=== PATIENT | male | born 1985 | race Caucasian/White ===

== ENCOUNTER 2020-03-24 01:02 | Emergency (ER) | payer OTHER ==
[~2020-03-24] VITALS: Ht 185.4 cm; Wt 86.2 kg
--- NOTE | 2020-03-24 01:10 | NUR ---
bibra c/o etoh and s/i, gf reports him saying he wants to jump off [address]. denies s/i h/i, hx of s/i.
--- NOTE | 2020-03-24 01:15 | NUR ---
PT PLACED IN GOWN. BELONGINGS PLACED IN LOCKER!
[2020-03-24 01:21] LABS: BASOPHILS % (AUTO) 0.4 % (0.0-2.0); EOSINOPHILS % (AUTO) 1.1 % (0.0-6.0); HEMATOCRIT 44 % (39-51); HEMOGLOBIN 14.9 g/dL (13.5-17.5); LYMPHOCYTES # (AUTO) 2.8 /CMM (0.8-4.8); LYMPHOCYTES % (AUTO) 38.7 % (20.0-44.0); MEAN CORPUSCULAR HGB CONC 34 g/dl (31.0-36.0); MEAN CORPUSCULAR VOLUME 89 fL (80-96); MONOCYTES # (AUTO) 0.4 /CMM (0.1-1.30); MONOCYTES % (AUTO) 5.2 % (2.0-12.0); NEUTROPHILS % (AUTO) 54.6 % (43.0-81.0); PLATELET COUNT (AUTO) 236 /CMM (150-450); RED BLOOD CELL COUNT(AUTO) 4.92 MIL/uL (4.5-6.0); WHITE BLOOD COUNT (AUTO) 7.3 K/uL (4.3-11.0)
[2020-03-24 01:28] LABS: CALCIUM, SERUM 8.6 mg/dL (8.5-10.1); CREATININE 1.1 mg/dL (0.6-1.3); POTASSIUM 3.7 mmol/L (3.5-5.1)
[2020-03-24] MEDS ORDERED: NEOMY SULF/BACITRAC ZN/POLY 15 GM TUBE TP SCH (01:30)
[2020-03-24] MEDS ORDERED: TDAP [DIPH/PERTUSSIS/TET] 0.5 ML VIAL IM ONE ×2 (01:30→01:55)
[2020-03-24 01:33] LABS: ALBUMIN 4.7 g/dL (3.4-5.0); BILIRUBIN,DIRECT 0.1 mg/dL (0.0-0.2); BILIRUBIN,TOTAL 0.2 mg/dL (0.2-1.0)
[2020-03-24 01:34] LABS: SALICYLATE 1.4 mg/dL (2.8-20.0)
[2020-03-24 02:25] LABS: APPEARANCE,URINE CLEAR (CLEAR); BILIRUBIN,URINE NEGATIVE (NEGATIVE); BLOOD, URINE NEGATIVE Ery/uL (NEGATIVE); COLOR,URINE YELLOW (YELLOW); KETONES,URINE NEGATIVE (NEGATIVE); LEUKOCYTE ESTERASE ,URINE NEGATIVE (NEGATIVE); NITRITE, URINE NEGATIVE (NEGATIVE); PROTEIN,URINE NEGATIVE (NEGATIVE); UGLUCOSE NEGATIVE (NEGATIVE); UROBILINOGEN,URINE 0.2 EU/dL (0.2)
--- NOTE | 2020-03-24 05:00 | NUR ---
Latanya Carmona - Sister [phone]
--- NOTE | 2020-03-24 06:06 | NUR ---
Farhan Cabrera - Father [phone] Lois Cabrera - Mother [phone]
--- NOTE | 2020-03-24 06:22 | NUR ---
PATIENT IS AWAKE AND RESTING. BREATHING EVENLY AND UNLABORED ON ROOM AIR. CONNECTED TO MONITOR. SITTER AT BEDSIDE.
--- NOTE | 2020-03-24 10:07 | NUR ---
AYAZ NOTE: Pt is a 34 year old male BI from home by girlfriend after pt drank a bottle of whiskey and was making suicidal statements of wanting to jump off his balcony. Per MD notes, pt has a history of cutting and burning himself and stated he burned his leg with a hot knife yesterday. AYAZ met with pt at bedside, on approach pt appears depressed with flat affect. Pt states that he cuts and meadows himself but does not want to kill himself and states he wants to go home. AYAZ offered to refer pt to [facility] and pt refused. Pt denied visual/auditory hallucinations and denied suicidal/homicidal ideation. AYAZ provided pt with behavioral health and substance abuse referrals. AYAZ informed RN and pt will be discharged home.
--- NOTE | 2020-03-24 10:45 | NUR ---
seen by dr. de oliveira and pt agreed to get admitted voluntarily to psych facility.
--- NOTE | 2020-03-24 10:59 | NUR ---
AYAZ NOTE: AYAZ received a call from RN stating that MD has requested pt be referred to [facility]. SW met with pt at bedside stating that he does not feel comfortable going home and wishes for voluntary psych placement. AYAZ faxed referral to Fahad, project coordinator rn . Per Fahad, there is a bed available for pt and is waiting for clinical review.
--- NOTE | 2020-03-24 11:00 | NUR ---
mitchell loyd) at bedside talking to pt.
--- NOTE | 2020-03-24 11:28 | NUR ---
AYAZ NOTE: AYAZ and met with pt at bedside, pt is depressed with suicidal ideation with plan to hurt himself by burning and cutting himself if he is discharged home. Pt states he will self harm if not helped. Addendum: 03/24/20 at 1217 by YOLY JACOME Pt reported that he does not want to kill himself but does wish to self harm via cutting and burning.
--- NOTE | 2020-03-24 12:00 | NUR ---
offered lunch, pt refused. pending transfer to [facility] facility as voluntary.
--- NOTE | 2020-03-24 12:18 | NUR ---
SW received a call from Christy health and wellness coordinator at [facility] stating that pt cannot be accepted due to no insurance coverage.
--- NOTE | 2020-03-24 12:19 | NUR ---
CRISIS NOTE: AYAZ contacted Maryam, non destructive tester for psych evaluation and possible clearance.
--- NOTE | 2020-03-24 13:25 | NUR ---
analytical laboratory technician at bedside for blood alcohol draw.
--- NOTE | 2020-03-24 14:00 | NUR ---
clive (crisis team clinician) at bedside for eval.
--- NOTE | 2020-03-24 14:20 | NUR ---
DESI MALCOLMW, STATED THAT THE PT IS NOT SUICIDAL AND IS OK FOR DISCHARGE. DR SAMUELS NOTIFIED. CHARGE NURSE NOTIFIED.
--- NOTE | 2020-03-24 14:32 | NUR ---
SPOKE WITH MOTHER AND FATHER OF PT. WILL TRY TO CONTACT RAMILA, PTS SIGNIFICANT OTHER TO PICK HER UP. CALLED RAMILA AND NO ANSWER.
--- NOTE | 2020-03-24 14:47 | NUR ---
SPOKE TO PTS GIRLFRIEND AND SHE WILL BE PICKING HIM UP IN ABOUT 10-20 MINUTES.
--- NOTE | 2020-03-24 15:13 | NUR ---
SPOKE TO FAMILY MEMBER AND EXPLAINED THAT THE PT WOULD BE RELEASED SHORTLY.
--- NOTE | 2020-03-24 15:35 | NUR ---
Patient discharged to home in stable condition. Written and verbal after care instructions given. Patient verbalizes understanding of instruction. PT TO F/U WITH ADDICTION CLINIC. VSS. NAD NOTED. PT AMBULATED TO THE LOBBY WITH A STEADY GAIT. PT'S GIRLFRIEND IS IN THE LOBBY AND IS DRIVING PT HOME.
[2020-03-24 15:43] VITALS: BP 128/84
== END 2020-03-24 15:25 | disposition home or self-care (01) ==
LOC: ER 01:03
DX: R45.851 Suicidal ideations (principal); F10.129 Alcohol abuse with intoxication, unspecified; T24.102A Burn of first degree of unspecified site of left lower limb, except ankle and foot, initial encounter; F32.9 Major depressive disorder, single episode, unspecified; X19.XXXA Contact with other heat and hot substances, initial encounter; Y93.89 Activity, other specified; Y92.89 Other specified places as the place of occurrence of the external cause; Y99.8 Other external cause status; Y90.8 Blood alcohol level of 240 mg/100 ml or more
CPT/HCPCS: 16020; 36415; 71045; 80048; 80076; 80305; 80307 ×3; 80329; 81001; 85025; 90471; 90715; 99284; G0480; 81000-TC

== ENCOUNTER 2020-08-03 23:55 | Emergency (ER) | payer OTHER ==
[~2020-08-03] VITALS: Ht 185.4 cm; Wt 91.2 kg
--- NOTE | 2020-08-04 | NUR ---
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 vss, nad noted. pending er provider lesly
--- NOTE | 2020-08-04 00:06 | NUR ---
PT ARRIVED TO [facility] WITH EMPTY BOTTLES OF: SERTRALINE HCL 100MG. QTY: 30, DATE FILLED: 06/03/2020 SERTRALINE HCL 50MG. QTY: 30, DATE FILLED: 07/08/2020 SERTRALINE HCL 25MG. QTY: 90, DATE FILLED: 04/28/2020 LAMOTRIGINE 100MG. QTY: 30, DATE FILLED: 07/08/2020 LAMOTRIGINE 25MG. QTY: 90, DATE FILLED: 06/18/2020 PT STATES HE TOOK "24 PILLS OF ZOLOFT AND 10 PILLS OF LAMICTAL" UNK DOSE
--- NOTE | 2020-08-04 00:12 | NUR ---
SPOKE WITH MADDIE FROM POISON CONTROL. RECOMMENDATIONS: CHARCOAL 50G EVENT REPRESENTATIVE SEIZURE PRECAUTIONS EKG, DRUG SCREEN, CHEM, MAGNESIUM MONITOR FOR [address] EARLY MADE AWARE
[2020-08-04] MEDS ORDERED: ACTIVATED CHARCOAL 25 GM/120 ML TUBE ONE ×2 (00:20→00:38)
[2020-08-04 00:22] LABS: BASOPHILS % (AUTO) 0.2 % (0.0-2.0); EOSINOPHILS % (AUTO) 1.7 % (0.0-6.0); HEMATOCRIT 44 % (39-51); LYMPHOCYTES # (AUTO) 3.1 /CMM (0.8-4.8); LYMPHOCYTES % (AUTO) 45.9 % (20.0-44.0); MEAN CORPUSCULAR HGB CONC 35 g/dl (31.0-36.0); MEAN CORPUSCULAR VOLUME 88 fL (80-96); MONOCYTES # (AUTO) 0.4 /CMM (0.1-1.30); MONOCYTES % (AUTO) 6.4 % (2.0-12.0); NEUTROPHILS # (AUTO) 3.1 /CMM (1.8-8.9); NEUTROPHILS % (AUTO) 45.8 % (43.0-81.0); PLATELET COUNT (AUTO) 242 /CMM (150-450); RED BLOOD CELL COUNT(AUTO) 4.92 MIL/uL (4.5-6.0); WHITE BLOOD COUNT (AUTO) 6.7 K/uL (4.3-11.0)
--- NOTE | 2020-08-04 00:23 | NUR ---
SPOKE WITH GIRLFRIEND, AMBER, PATIENT OKAY'D TO SPEAK WITH HER. LEFT PHONE NUMBER [phone].
--- NOTE | 2020-08-04 00:25 | NUR ---
PERSONAL THERAPIST IS ON STANDBY, .
[2020-08-04] MEDS ORDERED: IV NS 0.9% 1,000 ML BAG IV ONE (00:30)
[2020-08-04] MEDS ORDERED: ACTIVATED CHARCOAL 25 GM/120 ML TUBE PO ONE (00:30)
[2020-08-04] MEDS ORDERED: ONDANSETRON HCL/PF 4 MG/2 ML VIAL IVP ONE (00:30)
[2020-08-04] MEDS ORDERED: ONDANSETRON HCL/PF 4 MG/2 ML VIAL ONE (00:34)
[2020-08-04 00:56] LABS: ALANINE AMINOTRANSFERASE 26 U/L (12-78); ALBUMIN 4.8 g/dL (3.4-5.0); ALCOHOL, BLOOD 245 mg/dL (0-0); ALKALINE PHOSPHATASE 74 U/L (46-116); ASPARTATE AMINOTRANSFERASE 20 U/L (15-37); BILIRUBIN,DIRECT 0.1 mg/dL (0.0-0.2); BILIRUBIN,TOTAL 0.3 mg/dL (0.2-1.0); CARBON DIOXIDE 25 mmol/L (21-32); CHLORIDE 107 mmol/L (98-107); CREATININE 1.1 mg/dL (0.6-1.3); GLUCOSE 100 mg/dL (74-106); POTASSIUM 3.8 mmol/L (3.5-5.1); SODIUM SERUM 145 mmol/L (136-145); TOTAL PROTEIN, SERUM 8.4 g/dL (6.4-8.2); UREA NITROGEN, BLOOD 14 mg/dL (7-18)
--- NOTE | 2020-08-04 00:59 | NUR ---
PT UNABLE TO TOLERATE PO CHARCOAL. PER DR EARLY. START NGT THEN DC
[2020-08-04 01:00] LABS: ACETAMINOPHEN < 2 ug/ml (10-30); SALICYLATE 1.1 mg/dL (2.8-20.0)
--- NOTE | 2020-08-04 01:00 | NUR ---
NGT 14FR PLACED, VERIFIED PLACEMENT WITH 2ND RN; CHARCOAL ADMINISTRED VIA NGT. TOLERATED. REMOVED NGT PER ORDER
--- NOTE | 2020-08-04 01:09 | NUR ---
[employer] AT BEDSIDE
--- NOTE | 2020-08-04 02:00 | NUR ---
PER POISON CONTOL RE-EVAL IN 6HRS. PT VSS. ON MONITOR. SITTER BY BEDSIDE. NAD.
--- NOTE | 2020-08-04 03:00 | NUR ---
VITAL SIGNS UPDATED. Patient is resting comfortably in bed with eyes closed. Easily aroused. VSS
[2020-08-04 05:12] LABS: APPEARANCE,URINE CLEAR (CLEAR); BILIRUBIN,URINE NEGATIVE (NEGATIVE); BLOOD, URINE NEGATIVE Ery/uL (NEGATIVE); KETONES,URINE NEGATIVE (NEGATIVE); LEUKOCYTE ESTERASE ,URINE NEGATIVE (NEGATIVE); NITRITE, URINE NEGATIVE (NEGATIVE); PROTEIN,URINE NEGATIVE (NEGATIVE); UGLUCOSE NEGATIVE (NEGATIVE); UROBILINOGEN,URINE 0.2 EU/dL (0.2)
[2020-08-04 05:37] LABS: COLOR,URINE YELLOW (YELLOW)
--- NOTE | 2020-08-04 06:10 | NUR ---
Patient is resting comfortably in bed with eyes closed. Easily aroused. VSS
--- NOTE | 2020-08-04 07:09 | NUR ---
REPORT GIVEN TO DULCE MARIA ELDRIDGE FOR JESSEE
--- NOTE | 2020-08-04 08:01 | NUR ---
PATIENT AWAKE, ALERT AND ORIENTED, NO DISTRESS NOTED. NEEDS ATTENDED.
--- NOTE | 2020-08-04 08:20 | NUR ---
PER YOLY, CLOSING CASE FROM POISON CONTROL. PATIENT IS STABLE.
--- NOTE | 2020-08-04 08:46 | NUR ---
ORDERED BREAKFAST FOOD TRAY.
--- NOTE | 2020-08-04 09:14 | NUR ---
CALLED ART CRISIS FOR EVAL.
--- NOTE | 2020-08-04 10:07 | NUR ---
NAZARIO AT BEDSIDE FOR EVAL.
[2020-08-04] MEDS ORDERED: LAMO25TA10 PO (10:37)
[2020-08-04] MEDS ORDERED: SERT25TA PO (10:37)
--- NOTE | 2020-08-04 13:04 | NUR ---
PATIENT EVALUATED BY ART FROM CRISIS.
--- NOTE | 2020-08-04 13:24 | NUR ---
PATIENT A/OX4, BREATHING EVEN AND UNLABORED, NO SOB NOTED, NEEDS ATTENDED, KEPT COMFORTABLE. GIRLFRIEND WENT HOME TO GET CLOTHES FOR THE PATIENT.
[2020-08-04 13:59] VITALS: BP 126/71
--- NOTE | 2020-08-04 13:59 | NUR ---
Patient discharged to home in stable condition. Written and verbal after care instructions given. Patient verbalizes understanding of instruction.
--- NOTE | 2020-08-04 14:02 | NUR ---
This SW met the patient at bedside. Patient is a 34-year-old male, alert and oriented x4. Patient was receptive to speaking with this SW. Per MD note, patient presented to [facility] ER because patient overdosed on medications. Per MD note, patient is unsure if he was trying to hill himself. Patient confirmed date of , social security number, and current address. Per patient, he is currently working from home but did not want to report his current job. Patient admits taking many pills that were at bedside. Per patient, he has had a history of depression. Patient reports speaking with a therapist once a week, speaking with a psychiatrist approximately once a month, and reports last self-injury cut on the wrist approximately 6 weeks ago. Per patient, therapist and psychiatrist are relatively new but have been helping him slowly but surely. Per patient, he also consumes alcohol. Per patient, it varies a night, patient reports drinking anything from one drink a night to several drinks a night depending on my mood. Patient reports suicidal ideation stating, It is always on my mind, has been for a long time now. Per patient, his last psychiatric hospitalization was in 2012, and patient reports It is a lot to return to that space. Per patient, would like to sit on it and speak with his therapist, psychiatrist and family. Patient will likely require behavior clinician if patient refuses voluntary treatment to [facility]. SW to return to speak with the patient after patient makes phone calls and provide an update.
--- NOTE | 2020-08-04 14:02 | NUR ---
Patient assessed by [employer] Dispatcher.
== END 2020-08-04 13:59 | disposition home or self-care (01) ==
LOC: ER 23:57
DX: T56.891A Toxic effect of other metals, accidental (unintentional), initial encounter (principal); T43.221A Poisoning by selective serotonin reuptake inhibitors, accidental (unintentional), initial encounter; R00.1 Bradycardia, unspecified; F32.9 Major depressive disorder, single episode, unspecified; R45.851 Suicidal ideations; Z04.6 Encounter for general psychiatric examination, requested by authority; Y92.89 Other specified places as the place of occurrence of the external cause
CPT/HCPCS: 36415; 80048; 80076; 80299; 80307 ×2; 80320; 81001; 83735; 85025; 93005 ×2; 96361; 99285; 96374; J2405; 81000-TC; G0480